=== PATIENT | female | born 1945 | race Caucasian/White ===

== ENCOUNTER 2019-02-12 21:54 | Emergency (ER) | payer MEDICARE ==
[~2019-02-12] VITALS: Ht 157.5 cm; Wt 101.2 kg
[2019-02-12 22:10] VITALS: BP 156/79
--- NOTE | 2019-02-12 22:41 | NUR ---
ICE PACK GIVEN TO PT. FOR COMFORT.
[2019-02-12] MEDS ORDERED: OXYcodone/APAP 5/325MG TABLET ONE (23:17)
[2019-02-12] MEDS ORDERED: OXYcodone/APAP 5/325MG TABLET PO ONE (23:30)
== END 2019-02-12 23:25 | disposition home or self-care (01) ==
LOC: ED 23:20
DX: S63.502A Unspecified sprain of left wrist, initial encounter (principal); E03.9 Hypothyroidism, unspecified; I10 Essential (primary) hypertension; Z86.73 Personal history of transient ischemic attack (TIA), and cerebral infarction without residual deficits; X50.1XXA Overexertion from prolonged static or awkward postures, initial encounter; Y93.89 Activity, other specified; Y92.513 Shop (commercial) as the place of occurrence of the external cause; Y99.8 Other external cause status
CPT/HCPCS: 29125; 99283